=== PATIENT | male | born 2000 | race Caucasian/White ===

== ENCOUNTER 2022-09-25 19:12 | Emergency (ER) | payer OTHER ==
[~2022-09-25] VITALS: Ht 180.3 cm; Wt 58.9 kg
[2022-09-25 19:15] VITALS: BP 133/86
[2022-09-25 20:00] VITALS: BP 121/75
[2022-09-25 21:00] VITALS: BP 134/76
[2022-09-25 21:17] LABS: URINE BILIRUBIN - DIPSTICK NEGATIVE (NEGATIVE); URINE COLOR YELLOW; URINE GLUCOSE - DIPSTICK NEGATIVE (NEGATIVE); URINE KETONE Negative (NEGATIVE); URINE PH 6.5 (4.5-8.0); URINE PROTEIN - DIPSTICK NEGATIVE (NEG-TRACE); URINE SPECIFIC GRAVITY 1.025
[2022-09-25 21:18] LABS: URINE BLOOD DIPSTICK TRACE-INTACT (NEGATIVE); URINE LEUK ESTERASE NEGATIVE (NEGATIVE); URINE NITRITE - DIPSTICK NEGATIVE (Negative)
[2022-09-25 21:42] VITALS: BP 134/76
== END 2022-09-25 21:50 | disposition home or self-care (01) | DRG 87 ==
LOC: ED 19:12
PROVIDERS: Nurse Practitioner
DX: S06.9X1A Unspecified intracranial injury with loss of consciousness of 30 minutes or less, initial encounter (principal); S00.511A Abrasion of lip, initial encounter; S80.812A Abrasion, left lower leg, initial encounter; S90.811A Abrasion, right foot, initial encounter; V27.49XA Other motorcycle driver injured in collision with fixed or stationary object in traffic accident, initial encounter